=== PATIENT | male | born 1990 | race Caucasian/White ===

== ENCOUNTER 2019-10-10 09:48 | Emergency (ER) | payer OTHER ==
[2019-10-10 10:50] LABS: Absolute Lymphocytes (CBC) 1.6 K/uL (0.7-4.9); Basophils % 0.6 % (0-1.3); Lymphocytes % 26.6 % (15.3-44.8); MPV 8.3 fL (7.6-11.3)
--- NOTE | 2019-10-10 11:01 | RAD REPORT ---
EXAM DESCRIPTION: Orlando Wang (2 Views)10/10/2019 10:53 am CLINICAL HISTORY: Cough COMPARISON: None FINDINGS: The lungs appear clear of acute infiltrate. The heart is normal size IMPRESSION: No acute abnormalities displayed
[2019-10-10] MEDS ORDERED: ONDANSETRON 4 MG/2 ML VIAL ONE (11:08)
[2019-10-10] MEDS ORDERED: NA CHLORIDE 0.9% 1,000 ML ONE (11:08)
[2019-10-10] MEDS ORDERED: PROMETHAZINE 25 MG/ML VIAL ONE (11:13)
[2019-10-10 11:19] LABS: ALT/SGPT 27 U/L (12-78); AST/SGOT 17 U/L (15-37); Albumin 3.9 g/dL (3.4-5.0); Alkaline Phosphatase 63 U/L (45-117); BUN Blood Urea Nitrogen 14 mg/dL (7-18); Bicarbonate 28 mmol/L (21-32); Bilirubin Direct 0.1 mg/dL (0-0.2); Bilirubin Total 0.2 mg/dL (0.2-1.0); Glucose Level 97 mg/dL (74-106); Lipase 62 U/L (73-393); Sodium Level 141 mmol/L (136-145)
--- NOTE | 2019-10-10 11:41 | EDPHYS ---
Physician Documentation [facility] Name: Mike Bermudez Age: 29 yrs Sex: Male : 1990 Arrival Date: 10/10/2019 Time: 09:50 Bed 14 Private MD: ED Physician Jake Barry HPI: 10/10 11:31 This 29 yrs old Male presents to ER via Ambulatory with complaints of kb Abdominal Cramping, Diarrhea, Cough. 11:31 The patient presents to the emergency department with nausea, vomiting, diarrhea, kb abdominal pain. Onset: The symptoms/episode began/occurred 3 day(s) ago. Possible causes: unknown. The symptoms are aggravated by nothing. The symptoms are alleviated by nothing. Associated signs and symptoms: Pertinent positives: abdominal pain, diarrhea, nausea, vomiting. Severity of symptoms: At their worst the symptoms were moderate in the emergency department the symptoms are unchanged. The patient has not experienced similar symptoms in the past. The patient has not recently seen a physician. Pt reports diarrhea for 3 days, n/v and cough for 2 days. Now upper abd pain as well. Historical: - Allergies: 10:08 PENICILLINS; ss 10:08 tramadol; ss - Home Meds: 10:08 None [Active]; ss - PMHx: 10:08 None; ss - PSHx: 10:08 Tonsillectomy; Adenoids; bilateral ears; ss - Immunization history:: Adult Immunizations up to date. - Social history:: Smoking status: Patient/guardian denies using tobacco. - Ebola Screening: : Patient denies exposure to infectious person Patient denies travel to an Ebola-affected area in the 21 days before illness onset. ROS: 11:30 Constitutional: Negative for fever, chills, and weight loss, Neck: Negative for injury, kb pain, and swelling, Cardiovascular: Negative for chest pain, palpitations, and edema, Back: Negative for injury and pain, : Negative for injury, bleeding, discharge, and swelling, MS/Extremity: Negative for injury and deformity, Skin: Negative for injury, rash, and discoloration, Neuro: Negative for headache, weakness, numbness, tingling, and seizure. 11:30 Respiratory: Positive for cough, Negative for dyspnea on exertion, hemoptysis, orthopnea, pleurisy, shortness of breath, sputum production, wheezing. 11:30 Abdomen/GI: Positive for abdominal pain, nausea, vomiting, and diarrhea. Exam: 11:30 Constitutional: This is a well developed, well nourished patient who is awake, alert, kb and in no acute distress. Head/Face: Normocephalic, atraumatic. ENT: Nares patent. No nasal discharge, no septal abnormalities noted. Tympanic membranes are normal and external auditory canals are clear. Oropharynx with no redness, swelling, or masses, exudates, or evidence of obstruction, uvula midline. Mucous membranes moist. Neck: Trachea midline, no thyromegaly or masses palpated, and no cervical lymphadenopathy. Supple, full range of motion without nuchal rigidity, or vertebral point tenderness. No Meningismus. Chest/axilla: Normal chest wall appearance and motion. Nontender with no deformity. No lesions are appreciated. Cardiovascular: Regular rate and rhythm with a normal S1 and S2. No gallops, murmurs, or rubs. Normal PMI, no JVD. No pulse deficits. Respiratory: Lungs have equal breath sounds bilaterally, clear to auscultation and percussion. No rales, rhonchi or wheezes noted. No increased work of breathing, no retractions or nasal flaring. Back: No spinal tenderness. No costovertebral tenderness. Full range of motion. Skin: Warm, dry with normal turgor. Normal color with no rashes, no lesions, and no evidence of cellulitis. MS/ Extremity: Pulses equal, no cyanosis. Neurovascular intact. Full, normal range of motion. Neuro: Awake and alert, GCS 15, oriented to person, place, time, and situation. Cranial nerves II-XII grossly intact. Motor strength 5/5 in all extremities. Sensory grossly intact. Cerebellar exam normal. Normal gait. 11:30 Abdomen/GI: Inspection: obese Bowel sounds: normal, in all quadrants, Palpation: soft, in all quadrants, mild abdominal tenderness, in the right upper quadrant and left upper quadrant. Vital Signs: 10:08 BP 127 / 91; Pulse 69; Resp 16; Temp 98.4(TE); Pulse Ox 100% on R/A; Weight 108.86 kg; ss Height 5 ft. 10 in. (177.80 cm); Pain 3/10; 10:50 BP 125 / 52; Pulse 64; Resp 17 S; Pulse Ox 100% on R/A; ca1 11:47 BP 121 / 63; Pulse 60; Resp 17 S; Pulse Ox 100% on R/A; ca1 10:08 Body Mass Index 34.44 (108.86 kg, 177.80 cm) ss MDM: 10:04 Patient medically screened. kb 11:28 Data reviewed: vital signs, nurses notes. Data interpreted: Pulse oximetry: on room air kb is 100 %. Interpretation: normal. Counseling: I had a detailed discussion with the patient and/or guardian regarding: the historical points, exam findings, and any diagnostic results supporting the discharge/admit diagnosis, lab results, radiology results, the need for outpatient follow up, a family practitioner, to return to the emergency department if symptoms worsen or persist or if there are any questions or concerns that arise at home. 10/10 10:30 Order name: Basic Metabolic Panel; Complete Time: 11:20 kb 10/10 10:30 Order name: CBC with Diff; Complete Time: 10:59 kb 10/10 10:30 Order name: Hepatic Function; Complete Time: 11:20 kb 10/10 10:30 Order name: Lipase; Complete Time: 11:20 kb 10/10 10:30 Order name: Chest Pa And Lat (2 Views) XRAY; Complete Time: 11:11 kb 10/10 10:30 Order name: IV Saline Lock; Complete Time: 10:45 kb 10/10 10:30 Order name: Labs collected and sent; Complete Time: 10:45 kb 10/10 11:32 Order name: PO challenge; Complete Time: 11:48 kb Administered Medications: 11:10 Drug: NS 0.9% 1000 ml Route: IV; Rate: 1000 ml; Site: right antecubital; ca1 12:00 Follow up: Response: No adverse reaction; IV Status: Completed infusion; IV Intake: ca1 1000ml 11:10 Not Given (Patient Refused): Zofran 4 mg IVP once; over 2 minutes ca1 11:14 Drug: Phenergan 12.5 mg Route: IVP; Site: right antecubital; ca1 11:48 Follow up: Response: No adverse reaction; Nausea is decreased ca1 Disposition: 10/10/19 11:39 Discharged to Home. Impression: Nausea with vomiting, unspecified, Diarrhea, unspecified, Cough. - Condition is Stable. - Discharge Instructions: Viral Gastroenteritis, Adult, [id number], Cough, Adult, [id number]. - Prescriptions for Bentyl 20 mg Oral Tablet - take 1 tablet by ORAL route every 6 hours As needed; 20 tablet. Tessalon Perles 100 mg Oral Capsule - take 1 capsule by ORAL route every 8 hours As needed; 15 capsule. promethazine 25 mg Oral Tablet - take 1 tablet by ORAL route every 8 hours As needed; 20 tablet. - Medication Reconciliation Form, Thank You Letter, Antibiotic Education, Prescription Opioid Use form. - Follow up: Emergency Department; When: As needed; Reason: Worsening of condition. Follow up: Private Physician; When: 2 - 3 days; Reason: Recheck today's complaints, Continuance of care, Re-evaluation by your physician. Addendum: 10/14/2019 06:26 Co-signature as Attending Physician, Jake Barry MD I agree with the assessment and k dr plan of care. Signatures: Dispatcher [employer] EDOK Karuna Mendez, BRANCH EXAMINER-C BRANCH EXAMINER-Ckb Jake Barry MD MD [facility] Candace Bryant RN RN ss Eloina Hugo RN RN ca1 Corrections: (The following items were deleted from the chart) 10/10 12:02 11:39 10/10/2019 11:39 Discharged to Home. Impression: Nausea with vomiting, ca1 unspecified; Diarrhea, unspecified; Cough. Condition is Stable. Forms are Medication Reconciliation Form, Thank You Letter, Antibiotic Education, Prescription Opioid Use. Follow up: Emergency Department; When: As needed; Reason: Worsening of condition. Follow up: Private Physician; When: 2 - 3 days; Reason: Recheck today's complaints, Continuance of care, Re-evaluation by your physician. kb
--- NOTE | 2019-10-10 11:41 | ER ---
Nurse's Notes [facility] Name: Mike Bermudez Age: 29 yrs Sex: Male : 1990 Arrival Date: 10/10/2019 Time: 09:50 Bed 14 Private MD: Diagnosis: Nausea with vomiting, unspecified;Diarrhea, unspecified;Cough Presentation: 10/10 10:07 Presenting complaint: Patient states: diarrhea x 3 days, painful, dry hacking cough ss that began yesterday. Denies fever. Transition of care: patient was not received from another setting of care. Onset of symptoms was October 07, 2019. Risk Assessment: Do you want to hurt yourself or someone else? Patient reports no desire to harm self or others. Initial Sepsis Screen: Does the patient meet any 2 criteria? No. Patient's initial sepsis screen is negative. Does the patient have a suspected source of infection? No. Patient's initial sepsis screen is negative. Care prior to arrival: None. 10:07 Method Of Arrival: Ambulatory ss 10:07 Acuity: AMI 3 ss Historical: - Allergies: 10:08 PENICILLINS; ss 10:08 tramadol; ss - Home Meds: 10:08 None [Active]; ss - PMHx: 10:08 None; ss - PSHx: 10:08 Tonsillectomy; Adenoids; bilateral ears; ss - Immunization history:: Adult Immunizations up to date. - Social history:: Smoking status: Patient/guardian denies using tobacco. - Ebola Screening: : Patient denies exposure to infectious person Patient denies travel to an Ebola-affected area in the 21 days before illness onset. Screenin:09 Abuse screen: Denies threats or abuse. Denies injuries from another. Nutritional ca1 screening: No deficits noted. Tuberculosis screening: No symptoms or risk factors identified. Fall Risk None identified. Assessment: 10:09 General: Appears in no apparent distress. comfortable, Behavior is calm, cooperative, ca1 appropriate for age. Pain: Complains of pain in epigastric area Pain does not radiate. Pain currently is 3 out of 10 on a pain scale. at worst was 10 out of 10 on a pain scale. Quality of pain is described as crampy, Pain began 2-3 days ago. Is intermittent, Aggravated by coughing. Neuro: Level of Consciousness is awake, alert, obeys commands, Oriented to person, place, time, situation, Appropriate for age. Cardiovascular: Heart tones S1 S2 present Capillary refill < 3 seconds Patient's skin is warm and dry. Respiratory: Airway is patent Respiratory effort is even, unlabored, Respiratory pattern is regular, symmetrical, Breath sounds are clear bilaterally. Respiratory: Reports cough that is since 2 days ago. GI: Abdomen is round non-distended, Bowel sounds present X 4 quads. Abd is soft X 4 quads Abdomen is tender to palpation in right upper quadrant and left upper quadrant Reports diarrhea, nausea, vomiting, since 3 days ago. : No deficits noted. No signs and/or symptoms were reported regarding the genitourinary system. EENT: No deficits noted. No signs and/or symptoms were reported regarding the EENT system. Derm: Skin is intact, is healthy with good turgor, Skin is pink, warm \T\ dry. Musculoskeletal: Circulation, motion, and sensation intact. Capillary refill < 3 seconds, Range of motion: intact in all extremities. 10:40 Reassessment: Patient appears in no apparent distress at this time. Patient and/or ca1 family updated on plan of care and expected duration. Pain level reassessed. Patient is alert, oriented x 3, equal unlabored respirations, skin warm/dry/pink. 11:47 Reassessment: Patient appears in no apparent distress at this time. Patient is alert, ca1 oriented x 3, equal unlabored respirations, skin warm/dry/pink. Vital Signs: 10:08 BP 127 / 91; Pulse 69; Resp 16; Temp 98.4(TE); Pulse Ox 100% on R/A; Weight 108.86 kg; ss Height 5 ft. 10 in. (177.80 cm); Pain 3/10; 10:50 BP 125 / 52; Pulse 64; Resp 17 S; Pulse Ox 100% on R/A; ca1 11:47 BP 121 / 63; Pulse 60; Resp 17 S; Pulse Ox 100% on R/A; ca1 10:08 Body Mass Index 34.44 (108.86 kg, 177.80 cm) ED Course: 09:50 Patient arrived in ED. as 09:51 Karuna Mendez [facility]C [facility] kb 09:51 Jake Barry MD is Attending Physician. kb 10:03 Eloina Hugo, RN is Primary Nurse. ca1 10:07 Triage completed. ss 10:08 Arm band placed on right wrist. ss 10:09 Patient has correct armband on for positive identification. Placed in gown. Bed in low ca1 position. Call light in reach. Side rails up X 1. Pulse ox on. NIBP on. Warm blanket given. 10:09 No provider procedures requiring assistance completed. ca1 10:43 Initial lab(s) drawn, by me, sent to lab. Inserted saline lock: 20 gauge in right ca1 antecubital area, using aseptic technique. Blood collected. 10:52 Chest Pa And Lat (2 Views) XRAY In Process Unspecified. EDMS 12:01 IV discontinued, intact, bleeding controlled, No redness/swelling at site. Pressure ca1 dressing applied. Administered Medications: 11:10 Drug: NS 0.9% 1000 ml Route: IV; Rate: 1000 ml; Site: right antecubital; ca1 12:00 Follow up: Response: No adverse reaction; IV Status: Completed infusion; IV Intake: ca1 1000ml 11:10 Not Given (Patient Refused): Zofran 4 mg IVP once; over 2 minutes ca1 11:14 Drug: Phenergan 12.5 mg Route: IVP; Site: right antecubital; ca1 11:48 Follow up: Response: No adverse reaction; Nausea is decreased ca1 Intake: 12:00 IV: 1000ml; Total: 1000ml. ca1 Outcome: 11:39 Discharge ordered by MD. kb 12:01 Discharged to home ambulatory. ca1 12:01 Condition: stable 12:01 Discharge instructions given to patient, Instructed on discharge instructions, follow up and referral plans. medication usage, Demonstrated understanding of instructions, follow-up care, medications, Prescriptions given X 3. 12:02 Patient left the ED. ca1 Signatures: Dispatcher [employer] EDID Karuna Mendez, JUSTO HOLCOMB-Sylwia Frederick Shelby, SILVIO RN Eloina Hugo, SILVIO RN ca1
[2019-10-10 12:11] VITALS: TEMP 98.4; O2SAT 100
[2019-10-10 12:14] VITALS: BP 121/63
== END 2019-10-10 12:02 | disposition home or self-care (01) ==
LOC: ER 09:48
DX: R11.2 Nausea with vomiting, unspecified (principal); R19.7 Diarrhea, unspecified; R05 Cough; Z88.0 Allergy status to penicillin; Z88.6 Allergy status to analgesic agent
CPT/HCPCS: 85025; 80048; 36415; 80076; 83690; 71046; J2550; J7030; J2405